=== PATIENT | female | born 1935 | race Caucasian/White ===

== ENCOUNTER 2017-01-18 12:59 | Emergency (ER) | payer MEDICARE ==
[2017-01-18] MEDS ORDERED: Ondansetron INJ* 2 MG/ML VIAL IV ONE (14:44)
[2017-01-18] MEDS ORDERED: Morphine INJ* 4 MG/ML 1 ML SYRINGE IV ONE (14:44)
[2017-01-18] MEDS ORDERED: NS 0.9% 1000 ML* 1,000 ML IV ONE (14:44)
[2017-01-18 15:11] LABS: Hematocrit 41 % (35-47); Hemoglobin 13.2 g/dl (12.0-16.0); Mean Corpuscular HGB Conc 33 g/dl (31-36); Mean Corpuscular Hemoglobin 28 pg (27-31); Mean Corpuscular Volume 85 fL (80-97); Mean Platelet Volume 7 um3 (7.4-10.4); Red Blood Count 4.81 10^6/ul (4.0-5.4); Red Cell Distribution Width 18 % (10.5-15); White Blood Count 7.4 10^3/ul (3.5-10.8)
[2017-01-18 15:26] LABS: Albumin 3.8 g/dL (3.2-5.2); BUN/Creatinine Ratio 18.3 (8-20); C Reactive Protein 16.52 mg/L (< 5.00); Calcium 9.4 mg/dL (8.6-10.3); EGFR African American 58.5 (>60); EGFR Non-African American 45.5 (>60); Globulin 3.6 g/dL (2-4); Magnesium 2.2 mg/dL (1.9-2.7); Total Bilirubin 0.5 mg/dL (0.2-1.0); Total Protein 7.4 g/dL (6.4-8.9)
[2017-01-18 15:54] LABS: Potassium 3.8 mmol/L (3.5-5.0)
[2017-01-18 16:17] LABS: Urine Bacteria Absent (Absent); Urine Bilirubin Negative (Negative); Urine Glucose Negative (Negative); Urine Nitrite Negative (Negative)
--- NOTE | 2017-01-18 16:21 | RAD ---
Indication: Left flank pain. CT of the abdomen and pelvis was performed without oral or IV contrast administration. Coronal and sagittal reconstructed images were obtained. Lung bases demonstrate no evidence of pleural fluid. Chronic interstitial disease is noted. Heart is of enlarged without evidence of pericardial effusion. Liver is normal in size. No focal lesions or intrahepatic ductal dilatation is noted. The patient status post cholecystectomy. The common duct is not dilated. The spleen is normal in size. No adrenal lesions are noted. The kidneys demonstrate no hydronephrosis in either kidney. Atherosclerotic aorta is noted. No dilated loops of bowel are noted. CT of the pelvis demonstrates no retroperitoneal or pelvic lymphadenopathy. The uterus and ovaries are unremarkable. The urinary bladder is unremarkable. No evidence of diverticulitis is noted. Extensive diverticulosis of the sigmoid colon is noted. No retroperitoneal hematoma is noted. No obstructive uropathy is noted. IMPRESSION: No evidence of abnormal masses or obstructive uropathy is noted. No retroperitoneal hematoma is noted. Diverticulosis without definite evidence of diverticulitis is noted.
--- NOTE | 2017-01-18 16:25 | RAD ---
Indication: Back pain. CT of the lumbar spine was obtained in the axial plane. Sagittal and coronal reconstructed images were obtained. Diffuse osteopenia is noted. There is grade 1 spondylolisthesis of L4 on 5. Postoperative changes with posterior fusion of L4 on 5 is noted. Retrolisthesis of L3 on 4 is noted. Facet arthropathy is noted. Degenerative disc disease is noted at L2-L3. Degenerative disc disease at L1-L2. Broad-based protrusion is noted. There may be a moderate degree of spinal stenosis is noted. Facet arthropathy is noted. At T12-L1 spondylitic ridge flattens the thecal sac. IMPRESSION: LAMINECTOMY AT L4-L5. GRADE 1 SPONDYLOLISTHESIS OF L4 ON 5 IS NOTED. FUSION RODS ARE NOTED WITH TRANSPEDICULAR SCREWS ON THE RIGHT AT L5, L4 AND L3. AT L1-L2 SPONDYLITIC RIDGE WITH MODERATE DEGREE OF SPINAL STENOSIS IS NOTED.
--- NOTE | 2017-01-18 16:51 | ED ---
Abram Quintana Rebecca, scribed for Ana Briones MD on 01/18/17 at 1421 . Back Pain - HPI Summary HPI Summary: Pt is a 81 y/o F who presents to ED c/o L lumbar back pain. Sx began suddenly at 0900 yesterday morning and is "above the hip." Sx aggravated and alleviated by nothing. Additionally c/o slight SOB and N/V, vomiting 1x this morning. Denies dysuria, urine frequency, fever, diarrhea, CP. States she was sitting in a chair, picking string beans 3 days ago. No recent falls. Is on Coumadin. PMHx chronic back pain - pain has never caused her to vomit previously. PSHx 2 back surgeries, placing hardware. - History of Current Complaint Chief Complaint: EDNauseaVomitDiarrh Stated Complaint: LT SIDED BACK PAIN,VOMITTING Time Seen by Provider: 01/18/17 14:19 Hx Obtained From: Patient Onset/Duration: Sudden Onset, Still Present Onset/Duration: Started Days Ago - Started yesterday, Still Present Back Pain Location: Is Discrete @ - L lumbar back Severity Currently: Severe Pain Intensity: 9 Pain Scale Used: 0-10 Numeric Aggravating Symptom(s): Nothing Alleviating Symptom(s): Nothing Associated Signs And Symptoms: Negative: Fever - Allergies/Home Medications Allergies/Adverse Reactions: Allergies Allergy/AdvReac Type Severity Reaction Status Date / Time Fluconazole [From Diflucan] Allergy Unknown Verified 01/20/16 10:43 Reaction Details zocor Allergy Unknown Uncoded 01/20/16 10:43 Reaction Details PMH/Surg Hx/FS Hx/Imm Hx Endocrine/Hematology History: Reports: Hx Blood Transfusions, Hx Diabetes, Hx Unexplained Bleeding - Admission Dx Cardiovascular History: Reports: Hx Angioplasty, Hx Atrial Fibrillation - 07/2015 , Hx Cardiac Arrest - 1991, Hx Congestive Heart Failure - 06/2015, Hx Coronary Artery Disease, Hx Embolism, Hx Hypercholesterolemia, Hx Hypertension, Hx Myocardial Infarction - 1991 Respiratory History: Reports: Hx Asthma, Hx Chronic Obstructive Pulmonary Disease (COPD) - likely, Hx Pneumonia, Hx Pulmonary Edema, Hx Pulmonary Embolism , Hx Sleep Apnea GI History: Reports: Hx Gall Bladder Disease - cholecystectomy, Hx Gastroesophageal Reflux Disease, Hx Gastrointestinal Bleed - Admission Dx, Other GI Disorders - umbilical hernia History: Reports: Hx Acute Renal Failure - Admission Dx, Other Problems/ Disorders - chronic kidney disease Denies: Hx Kidney Stones Musculoskeletal History: Reports: Hx Arthritis - osteoarthritis of spine, Hx Back Problems - lower back pain, Hx Gout, Hx Orthopedic Injury - broken leg,, Other Musculoskeletal History - spinal stenosis, carpal tunnel Sensory History: Reports: Hx Cataracts, Hx Contacts or Glasses, Hx Deafness - right Denies: Hx Hearing Aid Opthamlomology History: Reports: Hx Cataracts, Hx Contacts or Glasses - Surgical History Surgery Procedure, Year, and Place: gallbladder removal, appendix, left knee, back surgery, cardiac stents 1996, hardware in right knee, hardware in back from 2 back surgeries, carpal tunnel surgery to left wrist. 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 Negative: Diarrhea Negative: dysuria, frequency Positive: Arthralgia - L lumbar back pain All Other Systems Reviewed And Are Negative: Yes Physical Exam - Summary Physical Exam Summary: General: Well appearing, no pain distress Skin: Warm, Skin Color Reflects Adequate Perfusion, Dry Eyes: EOMI, ANNELIESE ENT: Pharynx normal, TMs normal Neck: Supple, nontender Respiratory: CTA, breath sounds present, no rhonchi, no wheezes, no rales Cardiovascular: RRR, no murmur, no rub, no gallop Abdomen: Soft, nontender, Non-distended, no guarding, no rebound Bowel: Present Musculoskeletal: ZACHARIAH, No edema, mild L4-L5 pain, mild L flank pain and mild costovertebral pain Neuro: Sensory/motor intact, A&Ox3, CN intact 2-12 Psych: Affect/mood appropriate Triage Information Reviewed: Yes Vital Signs On Initial Exam: Initial Vitals Temp Pulse Resp BP Pulse Ox 98.3 F 88 20 166/87 97 01/18/17 13:11 01/18/17 13:11 01/18/17 13:11 01/18/17 13:11 01/18/17 13:11 Vital Signs Reviewed: Yes Diagnostics - Vital Signs Vital Signs Temp Pulse Resp BP Pulse Ox 01/18/17 13:11 98.3 F 88 20 166/87 97 - Laboratory Lab Results: Lab Results 01/18/17 01/18/17 01/18/17 Range/Units 15:00 15:00 15:00 WBC 7.4 (3.5-10.8) 10^3/ul RBC 4.81 (4.0-5.4) 10^6/ul Hgb 13.2 (12.0-16.0) g/dl Hct 41 (35-47) % MCV 85 (80-97) fL MCH 28 (27-31) pg MCHC 33 (31-36) g/dl RDW 18 H (10.5-15) % Plt Count 277 (150-450) 10^3/ul MPV 7 L (7.4-10.4) um3 Neut % (Auto) 80.4 (38-83) % Lymph % (Auto) 9.9 L (25-47) % [place] % (Auto) 7.1 (1-9) % Eos % (Auto) 0.9 (0-6) % Baso % (Auto) 1.7 (0-2) % Absolute Neuts (auto) 5.9 (1.5-7.7) 10^3/ul Absolute Lymphs (auto) 0.7 L (1.0-4.8) 10^3/ul Absolute Monos (auto) 0.5 (0-0.8) 10^3/ul Absolute Eos (auto) 0.1 (0-0.6) 10^3/ul Absolute Basos (auto) 0.1 (0-0.2) 10^3/ul Absolute Nucleated RBC 0 10^3/ul Nucleated RBC % 0 INR (Anticoag Therapy) 2.45 H (0.89-1.11) Sodium 133 (133-145) mmol/L Potassium 3.8 (3.5-5.0) mmol/L Chloride 99 L (101-111) mmol/L Carbon Dioxide 26 (22-32) mmol/L Anion Gap 8 (2-11) mmol/L BUN 21 (6-24) mg/dL Creatinine 1.15 H (0.51-0.95) mg/dL Est GFR ( Amer) 58.5 (>60) Est GFR (Non-Af Amer) 45.5 (>60) BUN/Creatinine Ratio 18.3 (8-20) Glucose 132 H (70-100) mg/dL Lactic Acid (0.5-2.0) mmol/L Calcium 9.4 (8.6-10.3) mg/dL Magnesium 2.2 (1.9-2.7) mg/dL Total Bilirubin 0.50 (0.2-1.0) mg/dL AST 19 (13-39) U/L ALT 11 (7-52) U/L Alkaline Phosphatase 49 (34-104) U/L C-Reactive Protein 16.52 H (< 5.00) mg/L Total Protein 7.4 (6.4-8.9) g/dL Albumin 3.8 (3.2-5.2) g/dL Globulin 3.6 (2-4) g/dL Albumin/Globulin Ratio 1.1 (1-3) Lipase 17 (11.0-82.0) U/L Urine Color Urine Appearance Urine pH (5-9) Ur Specific [place] (1.010-1.030) Urine Protein (Negative) Urine Ketones (Negative) Urine Blood (Negative) Urine Nitrate (Negative) Urine Bilirubin (Negative) Urine Urobilinogen (Negative) Ur Leukocyte Esterase (Negative) Urine WBC (Auto) (Absent) Urine RBC (Auto) (Absent) Urine Bacteria (Absent) Urine Glucose (Negative) 01/18/17 01/18/17 Range/Units 15:00 15:15 WBC (3.5-10.8) 10^3/ul RBC (4.0-5.4) 10^6/ul Hgb (12.0-16.0) g/dl Hct (35-47) % MCV (80-97) fL MCH (27-31) pg MCHC (31-36) g/dl RDW (10.5-15) % Plt Count (150-450) 10^3/ul MPV (7.4-10.4) um3 Neut % (Auto) (38-83) % Lymph % (Auto) (25-47) % [place] % (Auto) (1-9) % Eos % (Auto) (0-6) % Baso % (Auto) (0-2) % Absolute Neuts (auto) (1.5-7.7) 10^3/ul Absolute Lymphs (auto) (1.0-4.8) 10^3/ul Absolute Monos (auto) (0-0.8) 10^3/ul Absolute Eos (auto) (0-0.6) 10^3/ul Absolute Basos (auto) (0-0.2) 10^3/ul Absolute Nucleated RBC 10^3/ul Nucleated RBC % INR (Anticoag Therapy) (0.89-1.11) Sodium (133-145) mmol/L Potassium (3.5-5.0) mmol/L Chloride (101-111) mmol/L Carbon Dioxide (22-32) mmol/L Anion Gap (2-11) mmol/L BUN (6-24) mg/dL Creatinine (0.51-0.95) mg/dL Est GFR ( Amer) (>60) Est GFR (Non-Af Amer) (>60) BUN/Creatinine Ratio (8-20) Glucose (70-100) mg/dL Lactic Acid 1.6 (0.5-2.0) mmol/L Calcium (8.6-10.3) mg/dL Magnesium (1.9-2.7) mg/dL Total Bilirubin (0.2-1.0) mg/dL AST (13-39) U/L ALT (7-52) U/L Alkaline Phosphatase (34-104) U/L C-Reactive Protein (< 5.00) mg/L Total Protein (6.4-8.9) g/dL Albumin (3.2-5.2) g/dL Globulin (2-4) g/dL Albumin/Globulin Ratio (1-3) Lipase (11.0-82.0) U/L Urine Color Straw Urine Appearance Clear Urine pH 7.0 (5-9) Ur Specific [place] 1.004 L (1.010-1.030) Urine Protein Negative (Negative) Urine Ketones Negative (Negative) Urine Blood Negative (Negative) Urine Nitrate Negative (Negative) Urine Bilirubin Negative (Negative) Urine Urobilinogen Negative (Negative) Ur Leukocyte Esterase Trace H (Negative) Urine WBC (Auto) Trace(0-5/hpf) (Absent) Urine RBC (Auto) Absent (Absent) Urine Bacteria Absent (Absent) Urine Glucose Negative (Negative) Result Diagrams: 01/18/17 15:00 01/18/17 15:00 Lab Statement: Any lab studies that have been ordered have been reviewed, and results considered in the medical decision making process. - CT L-Spine CT CT Interpretation: Positive (See Comments) - LAMINECTOMY AT L4-L5. GRADE 1 SPONDYLOLISTHESIS OF L4 ON 5 IS NOTED. FUSION RODS ARE NOTED WITH TRANSPEDICULAR SCREWS ON THE RIGHT AT L5, L4 AND L3. AT L1-L2 SPONDYLITIC RIDGE WITH MODERATE DEGREE OF SPINAL STENOSIS IS NOTED. CT Interpretation Completed By: Radiologist Abd/Pel CT CT Interpretation: Positive (See Comments) - No evidence of abnormal masses or obstructive uropathy is noted. No retroperitoneal hematoma is noted. Diverticulosis without definite evidence of diverticulitis is noted. CT Interpretation Completed By: Radiologist - EKG 1447 Cardiac Rate: NL - 86 bpm EKG Rhythm: Atrial Fibrillation ST Segment: Non-Specific - Non-specific ST changes EKG Comparison: No Significant Change - Unchanged from EKG on 01/20/2016 Re-Evaluation - Re-Evaluation First Eval Re-Evaluation Time: 16:43 Comment: Discussed CT and lab results with the pt. Back Pain Course/Dx - Course Course Of Treatment: 81 yo female with back pain uropathy and fx ruled out pt better after getting morphine Assessment/Plan: Elevated BP noted and advised to f/u with PCP. - Diagnoses Provider Diagnoses: Back pain Discharge - Discharge Plan Condition: Stable Disposition: HOME Prescriptions: Cyclobenzaprine TAB* [Flexeril 10 MG TAB*] 10 mg PO TID PRN #30 tab PRN Reason: Spasms HYDROcodone/ACETAMIN 5-325 MG* [Harrod 5-325 TAB*] 1 tab PO Q8H PRN #14 tab MDD 3 PRN Reason: Pain Patient Education Materials: Back Pain (ED) Referrals: Christie Gibbs MD [Primary Care Provider] - 3 Days The documentation as recorded by the Abram ruiz Rebecca accurately reflects the service I personally performed and the decisions made by me, Ana Briones MD.
[2017-01-18] MEDS ORDERED: HYDROcodone/ACETAMIN 5-325 MG* 1 TAB PO ONE (17:21)
[2017-01-18 17:26] VITALS: BP 116/79
== END 2017-01-18 17:26 | disposition home or self-care (01) ==
LOC: ED 12:59
DX: M54.5 Low back pain (principal); R06.02 Shortness of breath; R11.2 Nausea with vomiting, unspecified; I48.91 Unspecified atrial fibrillation; Z79.01 Long term (current) use of anticoagulants; E11.9 Type 2 diabetes mellitus without complications; I11.0 Hypertensive heart disease with heart failure; I50.9 Heart failure, unspecified; I25.2 Old myocardial infarction; I25.10 Atherosclerotic heart disease of native coronary artery without angina pectoris; Z86.711 Personal history of pulmonary embolism; J44.9 Chronic obstructive pulmonary disease, unspecified; K21.9 Gastro-esophageal reflux disease without esophagitis; Z87.891 Personal history of nicotine dependence; Z79.899 Other long term (current) drug therapy
CPT/HCPCS: 36415; 72131; 74176; 80053; 81003; 81015; 83605; 83690; 83735; 85025; 85610; 86140; 87086; 93005; 96374; 96375; 99283; J2270; J2405

== ENCOUNTER 2018-05-08 17:17 | Inpatient (IN) | payer MEDICARE ==
--- NOTE | 2018-05-08 18:05 | ED ---
HPI Chest Pain - HPI Summary HPI Summary: Patient is a 82 y/o F w/ c/o chest pressure, productive cough, hemoptysis, SOB. She states that chest pressure onset this morning at around 0830, she characterizes this chest pressure as a "heaviness". Patient states she coughed up blood at 1430 today, notes that there was a dark red streak of blood in her phlegm. Two episodes of this are reported. PMHx of COPD, patient is on o2 2L at home. She states that she is more SOB than usual. Hx of ID reported, patient is unsure about Hx of clots in legs/lungs. Patient denies pain in legs. She states she does not have nebulizer at home, but used inhaler GREETER. Patient notes that she has never coughed up blood before. She was treated for bronchitis at [place] [facility] on 04/17/18 with Z-pack and prednisone. Patient is on Coumadin. She was brought to ED by private car. FMHx of ID is denied, patient reports FMHx of CA but denies PMHx of CA. On triage, pain is rated 2/10, nothing is noted to aggravate/alleviate Sx. Home medications and allergies are reviewed. Home Medications Cyanocobalamin TAB* [Vitamin B12 TAB*] 1,000 mcg PO DAILY 05/08/18 [History Confirmed 05/08/18] Ezetimibe 10 mg PO DAILY 05/08/18 [History Confirmed 05/08/18] Multivitamin [Multivitamins] 1 cap PO DAILY 05/08/18 [History Confirmed 05/08/18 ] Potassium Chlor TAB* [Klor Con ER TAB*] 10 meq PO DAILY 05/08/18 [History Confirmed 05/08/18] Umeclidinium 62.5 MDI(NF) [Incruse ELLIPTA MDI (NF)] 62.5 mcg IN DAILY 05/08/18 [History Confirmed 05/08/18] Warfarin TAB(*) [Coumadin TAB(*)] 4 mg PO DAILY 05/08/18 [History Confirmed ] Allergies Allergy/AdvReac Type Severity Reaction Status Date / Time fluconazole Allergy Unknown Verified 05/08/18 18:41 Reaction Details zocor Allergy Unknown Uncoded 05/08/18 18:41 Reaction Details - History of Current Complaint Chief Complaint: EDGeneral Time Seen by Provider: 05/08/18 17:47 Hx Obtained From: Patient Onset/Duration: Started Hours Ago - She states that chest pressure onset this morning at around 0830, patient states she coughed up blood at 1430 today, Still Present Timing: Constant, Lasting Hours - She states that chest pressure onset this morning at around 0830, patient states she coughed up blood at 1430 today Initial Severity: Mild Current Severity: Mild - 2/10 Pain Intensity: 2 Pain Scale Used: 0-10 Numeric - 2/10 Chest Pain Location: Left Anterior Chest Pain Radiates: No Character: Heaviness, Pressure/Squeezing Aggravating Factor(s): Nothing Alleviating Factor(s): Nothing Associated Signs and Symptoms: Positive: Chest Pain - pressure/heaviness, Shortness of Breath, Cough, Productive Cough, Hemoptysis, Other: - NEGATIVE - LEG PAIN - Additional Pertinent History Primary Care Physician: XANDER - Allergy/Home Medications Allergies/Adverse Reactions: Allergies Allergy/AdvReac Type Severity Reaction Status Date / Time fluconazole Allergy Unknown Verified 05/08/18 18:41 Reaction Details simvastatin Allergy Unknown Verified 05/11/18 08:38 Reaction Details Home Medications: Home Medications Cyanocobalamin TAB* [Vitamin B12 TAB*] 1,000 mcg PO DAILY 05/08/18 [History Confirmed 05/08/18] Ezetimibe 10 mg PO DAILY 05/08/18 [History Confirmed 05/08/18] Multivitamin [Multivitamins] 1 cap PO DAILY 05/08/18 [History Confirmed 05/08/18 ] Potassium Chlor TAB* [Klor Con ER TAB 10 MEQ*] 10 meq PO DAILY 05/08/18 [ History Confirmed 05/08/18] Umeclidinium 62.5 MDI(NF) [Incruse ELLIPTA MDI (NF)] 62.5 mcg IN DAILY 05/08/18 [History Confirmed 05/08/18] Warfarin TAB(*) [Coumadin TAB(*)] 4 mg PO DAILY 05/08/18 [History Confirmed 06/26] Warfarin TAB(*) [Coumadin TAB(*)] 2 mg WEEKLY 05/09/18 [History Confirmed ] PMH/Surg Hx/FS Hx/Imm Hx Previously Healthy: No Endocrine/Hematology History: Reports: Hx Blood Transfusions, Hx Diabetes, Hx Unexplained Bleeding Cardiovascular History: Reports: Hx Angioplasty, Hx Atrial Fibrillation - 07/2015 , Hx Cardiac Arrest - 1991, Hx Congestive Heart Failure - 06/2015, Hx Coronary Artery Disease, Hx Embolism, Hx Hypercholesterolemia, Hx Hypertension, Hx Myocardial Infarction - 1991 Respiratory History: Reports: Hx Asthma, Hx Chronic Obstructive Pulmonary Disease (COPD), Hx Pneumonia, Hx Pulmonary Edema, Hx Pulmonary Embolism, Hx Sleep Apnea GI History: Reports: Hx Gall Bladder Disease - cholecystectomy, Hx Gastroesophageal Reflux Disease, Hx Gastrointestinal Bleed, Other GI Disorders - umbilical hernia History: Reports: Hx Acute Renal Failure, Hx Renal Disease - CKD Denies: Hx Kidney Stones Musculoskeletal History: Reports: Hx Arthritis - osteoarthritis of spine, Hx Back Problems - lower back pain, Hx Gout, Hx Orthopedic Injury - broken leg,, Other Musculoskeletal History - spinal stenosis, carpal tunnel Sensory History: Reports: Hx Cataracts, Hx Contacts or Glasses, Hx Deafness - right Denies: Hx Hearing Aid Opthamlomology History: Reports: Hx Cataracts, Hx Contacts or Glasses - Surgical History Surgery Procedure, Year, and Place: gallbladder removal, appendix, left knee, back surgery, cardiac stents 1996, hardware in right knee, hardware in back from 2 back surgeries, carpal tunnel surgery to left wrist. Hx Anesthesia Reactions: No Infectious Disease History: No Infectious Disease History: Denies: Traveled Outside the [place] in Last 30 Days - Family History Known Family History: Positive: Other - pacemaker (mother); sister with cancer; FMHx of ID denied - Social History Alcohol Use: None Hx Substance Use: No Substance Use Type: Reports: None Hx Tobacco Use: Yes Smoking Status (MU): Former Smoker Type: Cigarettes Amount Used/How Often: 1PPD Length of Time of Smoking/Using Tobacco: 35 Have You Smoked in the Last Year: No Review of Systems Constitutional: Negative Positive: Chest Pain Positive: Shortness Of Breath, Cough - hemoptysis Gastrointestinal: Negative Positive: no symptoms reported Positive: Other - NEGATIVE - LEG PAIN Skin: Negative Neurological: Negative Psychological: Normal All Other Systems Reviewed And Are Negative: Yes Physical Exam - Summary Physical Exam Summary: Appearance: Well-appearing, moderate pain distress, well-nourished; SOB at rest , but can speak in complete sentences Skin: Warm, color reflects adequate perfusion, dry Head: Normal Head/Face inspection, atraumatic Eyes: Conjunctiva clear ENT: Normal inspection Neck: Supple, no nodes, no JVD Respiratory: Minimal respiratory distress, decreased breath sounds throughout. Cardio: RRR, No murmur, pulses normal, brisk capillary refill Abdomen: Soft, nontender Bowel sounds: Present Musculoskeletal: Strength Intact/ROM intact, no calf tenderness, no edema. Psychological: Normal Neuro: Alert, muscle tone normal, no focal deficit Triage Information Reviewed: Yes Vital Signs On Initial Exam: Initial Vitals Temp Pulse Resp BP Pulse Ox 98.5 F 83 20 143/87 92 05/08/18 17:26 05/08/18 17:26 05/08/18 17:26 05/08/18 17:26 05/08/18 17:26 Vital Signs Reviewed: Yes Diagnostics - Vital Signs Vital Signs Temp Pulse Resp BP Pulse Ox 05/08/18 17:26 98.5 F 83 20 143/87 92 - Laboratory Result Diagrams: 05/09/18 05:02 05/09/18 05:02 Lab Statement: Any lab studies that have been ordered have been reviewed, and results considered in the medical decision making process. - Radiology CXR Radiology Interpretation Completed By: ED Physician Summary of Radiographic Findings: NAD - EKG 1753 Cardiac Rate: Other Rate - 100% paced rhythm with rate of 81 BPM Ectopy: None Summary of EKG Findings: EKG showed 100% paced rhythm with rate of 81 BPM. Re-Evaluation - Re-Evaluation First Eval Re-Evaluation Time: 20:06 Change: Unchanged Comment: Patient has had no hemoptysis while in the ED. Her 2 daughters and are with her. Patient continues to have chest pressure. Heart rate is still 100% paced. O2 sat is 95% on 2 L nasal cannula, her usual. Patient's blood pressure is 165 systolic. We will give ASA 324 mg by mouth and nitroglycerin 0.4 mg sublingual now for the continued chest pressure. Will consult the hospitalist regarding admission. Second Eval Re-Evaluation Time: 20:45 Change: Unchanged Comment: Patient ambulated to bathroom wearing her oxygen. She states her chest pressure is "a little worse". Dr. Rebolledo agrees to admit. Patient and family agree with admission. Chest Pain Course/Dx - Course Course Of Treatment: Patient is a 82 y/o F w/ c/o chest pressure, productive cough, hemoptysis, SOB. She states that chest pressure onset this morning at around 0830, she characterizes this chest pressure as a "heaviness". Patient states she coughed up blood at 1430 today, notes that there was a dark red streak of blood in her phlegm. Two episodes of this are reported. PMHx of COPD, patient is on o2 at home. She states that she is more SOB than usual. Hx of ID reported, patient is unsure about Hx of clots in legs/lungs. Patient denies pain in legs. She states she does not have nebulizer at home, but used inhaler GREETER. Patient notes that she has never coughed up blood before. She was treated for bronchitis at [facility] on 04/17/18 with Z-pack and prednisone. Patient is on Coumadin. She was brought to ED by private car. FMHx of ID is denied, patient reports FMHx of CA but denies PMHx of CA. Physical exam showed SOB at rest, but patient can speak in complete sentences. Moderate pain distress is noted. Minimal respiratory distress, decreased breath sounds throughout. Labs showed procalcitonin <0.1, BNP 185. First trop was 0.01, second was 0.01. CK-MB was 1.8, lactic acid 1.4, magnesium 2.0, glucose 93, creatinine 1.37, D-dimer < 200, MPV 7, APTT 40.3, INR 2.16. EKG showed 100% paced rhythm with rate of 81 BPM, CXR showed NAD. 2006 While in ED, no hemoptysis. However, patient continues to have chest pressure. ASA 324 PO ED ONCE ONE and nitroglycerin 0.5 mg SL ED ONCE ONE given. Patient's case was discussed with Dr. Rebolledo at 2038, Dr. Rebolledo accepts patient for admission. 2044 Patient states chest pressure is a little worse. Patient agreeable with admission. - Diagnoses Provider Diagnoses: Chest pain, Hemoptysis - Provider Notifications Discussed Care Of Patient With: Aleida Rebolledo Time Discussed With Above Provider: 20:39 Instructed by Provider To: Other - Patient's case was discussed with Dr. Rebolledo at 2038, Dr. Rebolledo accepts patient for admission. Discharge - Sign-Out/Discharge Documenting (check all that apply): Patient Departure - admit - Discharge Plan Condition: Stable Disposition: ADMITTED TO [facility] - Billing Disposition and Condition Condition: STABLE Disposition: Admitted to [facility] - Attestation Statements Document Initiated by Marilynn: Yes Documenting Scribe: SUMAN SHEPPARD Provider For Whom Marilynn is Documenting (Include Credential): BOGDAN ROWE MD Scribjoseluis Attestation: SUMAN Quintana , scribed for BOGDAN ROWE MD on 05/11/18 at 2147. Scribe Documentation Reviewed: Yes Provider Attestation: The documentation as recorded by the SUMAN ruiz accurately reflects the service I personally performed and the decisions made by me, BOGDAN ROWE MD Status of Scribe Document: Viewed
[2018-05-08 18:10] LABS: ABS Basophils 0.1 10^3/ul (0-0.2); ABS Eosinophils 0.1 10^3/ul (0-0.6); ABS Lymphocytes 1.4 10^3/ul (1.0-4.8); ABS Monocytes 0.6 10^3/ul (0-0.8); ABS Neutrophils 4.6 10^3/ul (1.5-7.7); ABS Nucleated RBC 0 10^3/ul; Eosinophil % 1.2 %; Hematocrit 40 % (35-47); Hemoglobin 13.3 g/dl (12.0-16.0); Lymphocyte % 20.4 %; Mean Corpuscular HGB Conc 33 g/dl (31-36); Mean Corpuscular Hemoglobin 28 pg (27-31); Mean Corpuscular Volume 86 fL (80-97); Nucleated Red Blood Cells % 0.1; Platelet Count 306 10^3/ul (150-450); Red Cell Distribution Width 15 % (10.5-15); White Blood Count 6.9 10^3/ul (3.5-10.8)
[2018-05-08 18:20] LABS: INR 2.16 (0.77-1.02)
[2018-05-08 18:34] LABS: EGFR Non-African American 37.1 (>60)
[2018-05-08] MEDS ORDERED: Aspirin 81 mg CHEW TAB* 81 MG TAB.CHEW PO ONE (20:22)
[2018-05-08] MEDS ORDERED: Nitroglycerin TAB 0.4 MG* 0.4 MG TAB SL ONE (20:23)
[2018-05-08] MEDS ORDERED: Albuterol 2.5 MG/3 ML NEB.SOL* (0.083%) INH PRN (21:49)
[2018-05-08] MEDS ORDERED: Al Hydrox/Mg Hydrox/Simet LIQ* 30 ML UDC PO PRN (21:49)
[2018-05-08] MEDS ORDERED: Acetaminophen TAB* 325 MG PO PRN (21:49)
[2018-05-08] MEDS ORDERED: Warfarin TAB(*) 4 MG PO ONE (22:15)
[2018-05-08] MEDS ORDERED: Warfarin TAB(*) 4 MG PO SCH (23:00)
[2018-05-08] MEDS ORDERED: methylPREDNISolone SOD 40 MG* 1 ML VIAL IV SCH (23:00)
[2018-05-09] MEDS: Azithromycin TAB* 250 MG PO SCH ×2 (00:09→21:59)
[2018-05-09] MEDS: Gabapentin CAP(*) 300 MG PO SCH ×2 (00:10→22:00)
[2018-05-09] MEDS: cloNIDine TAB* 0.1 MG PO SCH ×3 (00:10→22:00)
[2018-05-09] MEDS: Pramipexole TAB* 0.125 MG PO SCH ×2 (00:11→21:59)
[2018-05-09] MEDS: methylPREDNISolone SOD 40 MG* 1 ML VIAL IV SCH ×3 (00:12→21:59)
[2018-05-09] MEDS: Atorvastatin* 20 MG TAB PO SCH ×2 (00:34→21:59)
[2018-05-09 05:30] LABS: ABS Basophils 0 10^3/ul (0-0.2); ABS Eosinophils 0 10^3/ul (0-0.6); ABS Lymphocytes 0.6 10^3/ul (1.0-4.8); ABS Monocytes 0.1 10^3/ul (0-0.8); ABS Neutrophils 6.7 10^3/ul (1.5-7.7); ABS Nucleated RBC 0 10^3/ul; Eosinophil % 0.1 %; Hematocrit 40 % (35-47); Hemoglobin 13.2 g/dl (12.0-16.0); Lymphocyte % 7.9 %; Mean Corpuscular HGB Conc 33 g/dl (31-36); Mean Corpuscular Hemoglobin 28 pg (27-31); Mean Corpuscular Volume 87 fL (80-97); Mean Platelet Volume 7.6 fL (7.4-10.4); Nucleated Red Blood Cells % 0; Platelet Count 283 10^3/ul (150-450); Red Blood Count 4.64 10^6/ul (4.00-5.40); Red Cell Distribution Width 15 % (10.5-15); White Blood Count 7.4 10^3/ul (3.5-10.8)
[2018-05-09 05:36] LABS: INR 2.18 (0.77-1.02)
[2018-05-09 05:46] LABS: EGFR Non-African American 37.1 (>60)
--- NOTE | 2018-05-09 07:49 | HP ---
HISTORY AND PHYSICAL: DATE OF ADMISSION: 05/08/18 PROVIDER: Chika Wayne NP PRIMARY CARE PROVIDER: Sai ATTENDING PHYSICIAN WHILE IN THE HOSPITAL: Dr. Aleida Rebolledo * (dictated by Chika Wayne NP). CHIEF COMPLAINT: 1. Hemoptysis. 2. Chest pain. 3. Shortness of breath. HISTORY OF PRESENT ILLNESS: Ms. Apodaca is an 82-year-old female with past medical history significant for atrial fibrillation, congestive heart failure, cardiomyopathy, hyponatremia, diabetes, coronary artery disease, chronic kidney disease, and spinal stenosis, who presented to the emergency room for evaluation after having blood-streaked sputum this afternoon. The patient was concerned because she takes Coumadin at home for atrial fibrillation and was coughing up blood. So, she presented for further evaluation. The patient also reports that she has been having heaviness in her chest that started this morning, as well as some increased shortness of breath, again that also started this morning. She reports that she was recently placed on antiinflammatory in the beginning of April. She was placed on a course of prednisone that has since been completed. She denies any fever or chills. She does report chest heaviness. No edema. Does report cough and hemoptysis and increased shortness of breath. Denies coughing large amount of blood only streaking. She denies any nausea, vomiting, or diarrhea. Denies any abdominal pain. Denies any gross hematuria or dysuria. Denies any focal weakness or sensory loss. No visual complaints. No dysphagia. No arthralgias or myalgias, rashes or lesions. Denies any psychosis or anxiety. PAST MEDICAL HISTORY: Significant for: 1. Atrial fibrillation. 2. Congestive heart failure. 3. Cardiomyopathy. 4. Hyponatremia. 5. Diabetes. 6. Coronary artery disease. 7. Chronic kidney disease. 8. Spinal stenosis. 9. Obstructive sleep apnea. 10. GERD. PAST SURGICAL HISTORY: Significant for: 1. Back surgery. 2. Fracture to the left lower leg. 3. Cholecystectomy. 4. Appendectomy. 5. Carpal tunnel surgery. 6. Tubal ligation. HOME MEDICATIONS: 1. Vitamin B12 1000 mcg p.o. daily. 2. Multivitamin 1 cap p.o. daily. 3. Vitamin D3 2000 units p.o. daily. 4. Calcium carbonate 1 tab p.o. daily. 5. Benadryl 50 mg p.o. daily. 6. Warfarin 4 mg p.o. daily with 2 mg on Friday. 7. Pravastatin 80 mg p.o. at bedtime. 8. Mirapex 0.25 mg p.o. at bedtime. 9. Isosorbide 60 mg p.o. daily. 10. Gabapentin 300 mg p.o. at bedtime. 11. Fenofibrate 145 mg p.o. at bedtime. 12. Incruse Ellipta 62.5 mcg inhaled daily. 13. Clonidine 0.1 mg p.o. b.i.d. 14. Diltiazem 120 mg p.o. daily. 15. Allopurinol 100 mg p.o. b.i.d. 16. Torsemide 20 mg p.o. b.i.d. 17. Sertraline 100 mg p.o. daily. 18. Zetia 10 mg p.o. daily. 19. Potassium 10 mEq p.o. daily. ALLERGIES TO MEDICATIONS: FLUCONAZOLE and ZOCOR. FAMILY HISTORY: Mother with a history of congestive heart failure. No reported history of diabetes. Daughter and sister both reported history of breast cancer. SOCIAL HISTORY: The patient quit smoking in 1991. Prior to that, she smoked a pack a day for 20 years. Denies any alcohol or illicit drug use. She is . She lives with her . Surrogate decision maker is her . She is a full code. REVIEW OF SYSTEMS: There was no documented fever. No significant weight change. There was no double vision. No ear discharge. No rhinorrhea. No sore throat. She does report chest pain. She denies any orthopnea or nocturnal dyspnea. She does report some increased shortness of breath and coughing up blood streaked sputum. She denies any nausea, vomiting, or diarrhea. Denies any abdominal pain. Denies any gross hematuria or dysuria. Denies any focal weakness or sensory loss. Denies any changes in her vision. Denies any dysphagia. Denies any arthralgias or myalgias. Denies any rashes or lesions, psychosis or anxiety. PHYSICAL EXAMINATION GENERAL: At this time, Ms. Apodaca is an 82-year-old female. She is awake and alert, sitting on the stretcher in the emergency room. She appears to have mild respiratory distress. VITAL SIGNS: Blood pressure 144/69, heart rate is 76 and paced, O2 saturation is 95%, respirations are 21, temperature is 98.5. HEENT: Head is atraumatic, normocephalic. Eyes: EOMs are intact. Sclerae anicteric and not pale. Oral mucosa appeared to be moist. NECK: Supple. LUNGS: Diminished with expiratory wheezes bilaterally. There are no rales. There are fine crackles in the bases. CARDIAC: S1, S2. Regular rate. No rubs or gallops. ABDOMEN: Soft and nontender. Bowel sounds are present x4. EXTREMITIES: Pedal pulses are +2 bilaterally. There is no edema. She is able to move all 4 extremities with 5/5 strength. NEUROLOGIC: She is awake, alert, and oriented x3. Her speech is clear. Thought process is intact. There are no gross neuro deficits. SKIN: Intact. DIAGNOSTIC STUDIES/LAB DATA: WBCs are 6.9, RBCs 4.70, hemoglobin 13.3, hematocrit was 40, platelet count was 306. INR was 2.16, aPTT was 40.3, D- dimer was less than 200. Blood gas, ABG: pH was 7.47, PCO2 was 39, PO2 was 71 , HCO3 was 28.3, base excess was 4.5. Sodium 138, potassium 3.8, chloride 101, carbon dioxide was 29, anion gap was 8, BUN was 23, creatinine 1.37, lactic acid was 1.4, glucose was 93, calcium 9.9, magnesium 2.0. ASTs were 18, ALTs were 13. Troponin is 0.01 x2. BNP was 185 and procalcitonin was less than 0.1. Possible interstitial changes noted to the right lower lobe. Radiologist's reading is currently pending. She had an electrocardiogram that shows a paced rhythm and a rate of 81. ASSESSMENT AND PLAN: Ms. Apodaca is an 82-year-old female patient, who presented to emergency room today with complaints of hemoptysis, shortness of breath, and chest heaviness. We were asked to see and evaluate her due to her symptoms. She will be admitted under observation for: 1. Hemoptysis. The patient reports blood streaking to her sputum. She is currently on Coumadin. I suspect that this is related to esophageal irritation. We will continue to monitor her for further symptoms or worsening of her hemoptysis. Her INR is currently therapeutic at 2.14. We will continue with her Coumadin at this time. The patient being on Coumadin, the likelihood of pulmonary embolism is low on the differential, but we will continue to monitor her for hypoxia and if her symptoms become worse, we could consider a V/ Q scan or CTA of the chest. 2. Chest heaviness. The patient reports that she has had increased chest heaviness. Her troponins thus far are negative. We will continue trending her troponins for one more. I will repeat an EKG in the morning. I suspect the chest pain and heaviness is related to her shortness of breath and underlying lung disease. She did receive nitro x1 in the emergency room with no change in her chest heaviness. She did also receive aspirin 324 mg. 3. Shortness of breath. I suspect that this is related to possible chronic obstructive pulmonary disease exacerbation. I will give her Solu-Medrol 40 mg IV q.[address] hours[address] her on azithromycin 500 mg p.o. The patient is afebrile, but does have expiratory wheezes throughout bilaterally and some crackles in the bases. I will also continue her on her home torsemide, as she does have a history of congestive heart failure. 4. Congestive heart failure. We will continue on her torsemide, isosorbide. 5. Atrial fibrillation. The patient will continue on Coumadin 4 mg. She does take 2 mg on Saturdays and diltiazem 120 mg p.o. daily. 6. Chronic kidney disease. Her creatinine is at baseline. We will continue to monitor. 7. FEN. She will be placed on heart healthy, decaf okay diet. 8. Code status. She is a full code. 9. DVT prophylaxis. We will continue her home Coumadin. Her INR is therapeutic at this time. 10. Disposition. She will be placed under observation. TIME SPENT: Time spent on this admission was 60 minutes, greater than half that time was spent [id number] with the patient discussing the events leading to this admission, and obtaining my history and physical, the other half the time was spent going over my plan of care and implementing my plan of care. I have discussed this with my attending, Dr. Aleida Rebolledo; she is in agreement with my plan. CHIKA WAYNE, MANUFACTURING SUPERVISOR 2ND SHIFT [id number]/[facility] #: [id number] [facility]ARA HOSPITALVincent
[2018-05-09] MEDS: Diltiazem CD CAP* 120 MG PO SCH (09:21)
[2018-05-09] MEDS: Sertraline* 100 MG TAB PO SCH (09:21)
[2018-05-09] MEDS: Ezetimibe TAB* 10 MG PO SCH (09:22)
[2018-05-09] MEDS: Allopurinol TAB* 100 MG PO SCH ×2 (09:22→22:00)
[2018-05-09] MEDS: Cyanocobalamin TAB* 500 MCG PO SCH (09:23)
[2018-05-09] MEDS: Isosorbide Mononitrate ER TAB* 60 MG PO SCH (09:23)
[2018-05-09] MEDS: Potassium Chlor TAB* 10 MEQ TAB.ER PO SCH (09:25)
--- NOTE | 2018-05-09 16:33 | PN ---
Objective Active Medications: Acetaminophen (Tylenol Tab*) 650 mg PO Q4H PRN PRN Reason: FEVER/PAIN Al Hydrox/Mg Hydrox/Simethicone (Maalox Plus*) 30 ml PO Q6H PRN PRN Reason: INDIGESTION Albuterol (Ventolin 2.5 Mg/3 Ml Neb.Yoli*) 2.5 mg INH [id number] AWAKE PRN PRN Reason: sob/wheezing Allopurinol (Zyloprim Tab*) 100 mg PO BID [facility] Last Admin: 05/09/18 09:22 Dose: 100 mg Atorvastatin Calcium (Lipitor*) 20 mg PO BEDTIME [facility] Last Admin: 05/09/18 00:34 Dose: 20 mg Azithromycin (Zithromax Tab*) 500 mg PO 2100 [facility] Last Admin: 05/09/18 00:09 Dose: 500 mg Clonidine HCl (Catapres Tab*) 0.1 mg PO BID [facility] Last Admin: 05/09/18 09:22 Dose: 0.1 mg Cyanocobalamin (Vitamin B12 Tab*) 1,000 mcg PO DAILY [facility] Last Admin: 05/09/18 09:23 Dose: 1,000 mcg Diltiazem HCl (Cardizem Cd Cap*) 120 mg PO DAILY [facility] Last Admin: 05/09/18 09:21 Dose: 120 mg Diphenhydramine HCl (Benadryl Po*) 50 mg PO BEDTIME [facility] Ezetimibe (Zetia Tab*) 10 mg PO DAILY [facility] Last Admin: 05/09/18 09:22 Dose: 10 mg Fenofibrate (Tricor(Nf)) 145 mg PO BEDTIME [facility] Gabapentin (Neurontin Cap(*)) 300 mg PO BEDTIME [facility] Last Admin: 05/09/18 00:10 Dose: 300 mg Isosorbide Mononitrate (Imdur Er Tab*) 60 mg PO DAILY [facility] Last Admin: 05/09/18 09:23 Dose: 60 mg Methylprednisolone Sodium Succinate (Solu-Medrol 40 Mg) 40 mg IV Q12HR [facility] Last Admin: 05/09/18 09:20 Dose: 40 mg Potassium Chloride (Klor Con Er Tab*) 10 meq PO DAILY [facility] Last Admin: 05/09/18 09:25 Dose: 10 meq Pramipexole Dihydrochloride (Mirapex Tab*) 0.25 mg PO BEDTIME [facility] Last Admin: 05/09/18 00:11 Dose: 0.25 mg Sertraline HCl (Zoloft*) 100 mg PO DAILY [facility] Last Admin: 05/09/18 09:21 Dose: 100 mg Vital Signs - 8 hr 05/09/18 05/09/18 05/09/18 08:43 11:17 15:16 Temperature 97.5 F 97.7 F Pulse Rate 78 82 Respiratory 18 20 Rate Blood Pressure 138/65 137/67 (mmHg) O2 Sat by Pulse 96 98 97 Oximetry Oxygen Devices in Use Now: Nasal Cannula Result Diagrams: 05/09/18 05:02 05/09/18 05:02 Assess/Plan/Problems-Billing Assessment: This is an 82 year old female that presents with SOB, chest heaviness and hemoptysis, admitted for same. - Patient Problems (1) Hemoptysis Code(s): R04.2 - HEMOPTYSIS SNOMED Code(s): 24773962 Comment: - 2/2 coumadin use with cough and irritation - Stable (2) CAD (coronary artery disease) Code(s): I25.10 - ATHSCL HEART DISEASE OF [place] CORONARY ARTERY W/O ANG PCTRS SNOMED Code(s): 16153981 Comment: - With report of chest heaviness and cough at admission - Does report hx of PM insertion and afib on coumadin - Continue metoprolol, statin, and imdur - Troponins negative, no EKG changes - Chest pain may be a component of lung disease given recent steroids, however , last ECHO was in 2016, will repeat ECHO and assess LV function (3) CKD (chronic kidney disease) stage 4, GFR 15-29 ml/min Code(s): N18.4 - CHRONIC KIDNEY DISEASE, STAGE 4 (SEVERE) SNOMED Code(s): 600504695 Comment: - Creat at baseline (4) Cardiomyopathy Code(s): I42.9 - CARDIOMYOPATHY, UNSPECIFIED SNOMED Code(s): 78855623 Comment: - Last ECHo in 2016 showing EF of 40-45% - Continue home meds and supportive care (5) HTN (hypertension) Current Visit: No Status: Acute Code(s): I10 - ESSENTIAL (PRIMARY) HYPERTENSION SNOMED Code(s): 90096041 Comment: C/C trazosin, losartan. Continue clonidine, diltiazem, and metoprolol. (6) DVT prophylaxis Code(s): SXQ5231 - SNOMED Code(s): 288509183 Comment: - INR therapeutic (7) Full code status Current Visit: No Status: Acute Code(s): Z78.9 - OTHER SPECIFIED HEALTH STATUS SNOMED Code(s): 328369991 Status and Disposition: Inpatient, anticipate DC home when medically stable
[2018-05-09] MEDS: diPHENhydraMINE PO* 50 MG PO SCH (22:00)
[2018-05-09] MEDS: Fenofibrate(NF) 145 MG TAB PO SCH (22:06)
[2018-05-10] MEDS: Allopurinol TAB* 100 MG PO SCH ×2 (09:26→21:47)
[2018-05-10] MEDS: Ezetimibe TAB* 10 MG PO SCH (09:27)
[2018-05-10] MEDS: Potassium Chlor TAB* 10 MEQ TAB.ER PO SCH (09:27)
[2018-05-10] MEDS: Isosorbide Mononitrate ER TAB* 60 MG PO SCH (09:27)
[2018-05-10] MEDS: Cyanocobalamin TAB* 500 MCG PO SCH (09:27)
[2018-05-10] MEDS: methylPREDNISolone SOD 40 MG* 1 ML VIAL IV SCH ×2 (09:27→21:48)
[2018-05-10] MEDS: cloNIDine TAB* 0.1 MG PO SCH ×2 (09:27→21:47)
[2018-05-10] MEDS: Sertraline* 100 MG TAB PO SCH (09:27)
[2018-05-10] MEDS: Diltiazem CD CAP* 120 MG PO SCH (09:27)
--- NOTE | 2018-05-10 15:38 | ECHO ---
Patient: KEVIN DURAN [facility] Rec#: [id number] : 1935 Date: 05/10/2018 Age: 82y Height: 163 cm / 64.2 in Weight: 99.97 kg / 220.3 lbs Sex: F BSA: 2.04 Room#: 433 Admit Date#: 05/08/2018 Type: Inpatient Referring: Melony Caballero Reading: Marck Matamoros DO Yard Associate: Marine Cabrera RDCS Transthoracic Echocardiogram Indication: Chest pain BP: 137/62 HR: 80 Rhythm: Paced Findings History: A-fib, CHF, cardiomyopathy, DM, CAD, CKD, ABDOUL. Technical Comments: The study quality is fair. Completed at 1330. Left Ventricle: The left ventricular chamber size is normal. Mild concentric left ventricular hypertrophy is observed. There is normal left ventricular systolic function. The estimated ejection fraction is 55-60%. There is abnormal ventricular septal wall motion consistent with right ventricular pacemaker. Abnormal left ventricular diastolic function is observed. Left Atrium: The left atrium is mildly dilated. Right Ventricle: The right ventricular cavity size is normal. The right ventricular global systolic function is mildly reduced. A pacemaker wire is visualized in the right ventricle. Right Atrium: The right atrium is moderately dilated. A pacemaker wire is visualized in the right atrium. Aortic Valve: The aortic valve is trileaflet. The aortic valve leaflets are mildly thickened. There is a trace of aortic regurgitation. There is no evidence of aortic stenosis. Mitral Valve: Mild mitral annular calcification present. The mitral valve leaflets are mildly thickened. There is mild mitral regurgitation. There is no evidence of mitral stenosis. Tricuspid Valve: The tricuspid valve leaflets are normal. There is mild tricuspid regurgitation. No pulmonary hypertension is noted., TR velocity 2.7 m/s There is no tricuspid stenosis. Pulmonic Valve: The pulmonic valve appears normal. There is a trace pulmonic regurgitation. There is no pulmonic stenosis. Pericardium: There is no significant pericardial effusion. Aorta: There is no dilatation of the ascending aorta. The aortic arch is not well visualized. The aortic root is normal in size. Pulmonary Artery: The main pulmonary artery appears normal. Venous: The inferior vena cava is dilated. There is a greater than 50% respiratory change in the inferior vena cava dimension. Conclusions The left ventricular chamber size is normal. Mild concentric left ventricular hypertrophy is observed. There is normal left ventricular systolic function. The estimated ejection fraction is 55-60%. The left atrium is mildly dilated. The right ventricular cavity size is normal. The right ventricular global systolic function is mildly reduced. A pacemaker wire is visualized in the right ventricle and septal motion appears to be RV paced No more than mild valvular regurgitation noted Normal estimated PASP which may be underestimated Comapred to prior study from 11/2017, the LVEF was prevously mildly reduced and estimated PASP was 60 mmHg Measurements Name Value Normal Range RVIDd (AP) 2D 3.8 cm (0.9 - 2.6) RVDdMajor (2D) 4.9 cm (2.2 - 4.4) RVAW (2D) 0.9 cm (0.2 - 0.5) RAd ISD 4CH 5.8 cm (3.4 - 4.9) RA (A4C)W 4.7 cm (2.9 - 4.6) IVSd (2D) 1.1 cm (0.6 - 1) LVPWd (2D) 1.1 cm (0.6 - 1) LVIDd (2D) 4.8 cm (3.6 - 5.4) LVIDs (2D) 4.4 cm - LV FS (2D) 10 % (25 - 45) Aortic Annulus 1.9 cm (1.4 - 2.6) Ao root diameter (2D) 3.1 cm (2.1 - 3.5) Ascending Ao 3.3 cm (2.1 - 3.4) LA dimension (AP) 2D 4.8 cm (2.3 - 3.8) LAd ISD 4CH 6.3 cm (2.9 - 5.3) LA ISD 4CH W 4.5 cm (2.5 - 4.5) Name Value Normal Range LA ESV BP (A/L) index 37 ml/m2 - Name Value Normal Range MV E-wave Vmax 1.2 m/sec - MV deceleration time 190 msec - LV septal e' Vmax 0.07 m/sec - LV lateral e' Vmax 0.07 m/sec - LV E:e' septal ratio 17.14 ratio - LV E:e' lateral ratio 17.14 ratio - Name Value Normal Range AV Vmax 1 m/sec - AV VTI 22.4 cm - AV peak gradient 4 mmHg - AV mean gradient 2 mmHg - LVOT Vmax 1 m/sec - LVOT VTI 18.9 cm - LVOT peak gradient 4 mmHg - LVOT mean gradient 2 mmHg - AHMET Vmax 0.6 m/sec - Name Value Normal Range MR Vmax 5.2 m/sec - MR VTI 178 cm - MR flow (PISA) 24 ml/sec - MR ERO 0.05 cm2 - MR PISA radius 0.3 cm - MR alias Vmax 42.1 cm/sec - Name Value Normal Range TR Vmax 2.7 m/sec - TR peak gradient 29 mmHg - RAP 8 mmHg - RVSP 37 mmHg - IVC diameter 2.7 cm - Name Value Normal Range PV Vmax 1 m/sec - PV peak gradient 4 mmHg -
--- NOTE | 2018-05-10 16:02 | PN ---
Subjective Date of Service: 05/10/18 Interval History: Patient seen and examined. States she is feeling better today. Had one episode of chest heaviness during ECHO today, however, it resolved with change of position and increased O2. She is currently OOB to chair, visiting with family and feeling improved. No acute SOB, tolerating O2 at 2.5L, denies n/v, no hemoptysis, mild unproductive cough. No fever or chills. Objective Active Medications: Acetaminophen (Tylenol Tab*) 650 mg PO Q4H PRN PRN Reason: FEVER/PAIN Al Hydrox/Mg Hydrox/Simethicone (Maalox Plus*) 30 ml PO Q6H PRN PRN Reason: INDIGESTION Albuterol (Ventolin 2.5 Mg/3 Ml Neb.Yoli*) 2.5 mg INH [id number] AWAKE PRN PRN Reason: sob/wheezing Last Admin: 05/10/18 12:48 Dose: 2.5 mg Allopurinol (Zyloprim Tab*) 100 mg PO BID [facility] Last Admin: 05/10/18 09:26 Dose: 100 mg Atorvastatin Calcium (Lipitor*) 20 mg PO BEDTIME [facility] Last Admin: 05/09/18 21:59 Dose: 20 mg Azithromycin (Zithromax Tab*) 500 mg PO 2100 [facility] Last Admin: 05/09/18 21:59 Dose: 500 mg Clonidine HCl (Catapres Tab*) 0.1 mg PO BID [facility] Last Admin: 05/10/18 09:27 Dose: 0.1 mg Cyanocobalamin (Vitamin B12 Tab*) 1,000 mcg PO DAILY [facility] Last Admin: 05/10/18 09:27 Dose: 1,000 mcg Diltiazem HCl (Cardizem Cd Cap*) 120 mg PO DAILY [facility] Last Admin: 05/10/18 09:27 Dose: 120 mg Diphenhydramine HCl (Benadryl Po*) 50 mg PO BEDTIME [facility] Last Admin: 05/09/18 22:00 Dose: 50 mg Ezetimibe (Zetia Tab*) 10 mg PO DAILY [facility] Last Admin: 05/10/18 09:27 Dose: 10 mg Fenofibrate (Tricor(Nf)) 145 mg PO BEDTIME [facility] Last Admin: 05/09/18 22:06 Dose: Not Given Gabapentin (Neurontin Cap(*)) 300 mg PO BEDTIME [facility] Last Admin: 05/09/18 22:00 Dose: 300 mg Isosorbide Mononitrate (Imdur Er Tab*) 60 mg PO DAILY [facility] Last Admin: 05/10/18 09:27 Dose: 60 mg Methylprednisolone Sodium Succinate (Solu-Medrol 40 Mg) 40 mg IV Q12HR [facility] Last Admin: 05/10/18 09:27 Dose: 40 mg Potassium Chloride (Klor Con Er Tab*) 10 meq PO DAILY [facility] Last Admin: 05/10/18 09:27 Dose: 10 meq Pramipexole Dihydrochloride (Mirapex Tab*) 0.25 mg PO BEDTIME [facility] Last Admin: 05/09/18 21:59 Dose: 0.25 mg Sertraline HCl (Zoloft*) 100 mg PO DAILY [facility] Last Admin: 05/10/18 09:27 Dose: 100 mg Warfarin Sodium (Coumadin Tab(*)) 4 mg PO DAILY@1700 [facility]; Protocol Vital Signs - 8 hr 05/10/18 05/10/18 05/10/18 08:14 11:18 12:21 Temperature 97.4 F 97.8 F 97 F Pulse Rate 82 77 74 Respiratory 20 16 20 Rate Blood Pressure 142/73 137/62 129/55 (mmHg) O2 Sat by Pulse 98 99 93 Oximetry 05/10/18 12:49 Temperature Pulse Rate 77 Respiratory 20 Rate Blood Pressure (mmHg) O2 Sat by Pulse 96 Oximetry Oxygen Devices in Use Now: Nasal Cannula Appearance: alert, fatigued-looking, NAD Eyes: No Scleral Icterus, PERRLA Ears/Nose/Mouth/Throat: NL Teeth, Lips, Gums, Mucous Membranes Moist Neck: NL Appearance and Movements; NL JVP, Trachea Midline Respiratory: Symmetrical Chest Expansion and Respiratory Effort, - - diminished throughout lung fileds, no wheeze rales or rhonchi Cardiovascular: NL Sounds; No Murmurs; No JVD, No Edema, - - paced Abdominal: NL Sounds; No Tenderness; No Distention Extremities: No Edema, No Clubbing, Cyanosis Skin: No Rash or Ulcers Neurological: Alert and Oriented x 3, NL Sensation Nutrition: Taking PO's Result Diagrams: 05/09/18 05:02 05/09/18 05:02 Microbiology and Other Data: Microbiology 05/09/18 00:41 Urine Culture - Final Urine No Growth (<1,000 CFU/mL) Diagnostic Imaging: Cardiac ECHO Conclusions: The left ventricular chamber size is normal. Mild concentric left ventricular hypertrophy is observed. There is normal left ventricular systolic function. The estimated ejection fraction is 55-60%. The left atrium is mildly dilated. The right ventricular cavity size is normal. The right ventricular global systolic function is mildly reduced. A pacemaker wire is visualized in the right ventricle and septal motion appears to be RV paced No more than mild valvular regurgitation noted Assess/Plan/Problems-Billing Assessment: This is an 82 year old female that presents with SOB, chest heaviness and hemoptysis, admitted for same. - Patient Problems (1) Hemoptysis Code(s): R04.2 - HEMOPTYSIS SNOMED Code(s): 51550126 Comment: - 2/2 coumadin use with cough and irritation, likely COPD exacerbation - Stable, restart coumadin home dose tonight of 4mg - Change to oral prednisone tomorrow and taper - Continue azithromycin and restart Incruse Ellipta at DC (2) CAD (coronary artery disease) Code(s): I25.10 - ATHSCL HEART DISEASE OF [place] CORONARY ARTERY W/O ANG PCTRS SNOMED Code(s): 28938820 Comment: - With report of chest heaviness and cough at admission which appears to be related to her COPD rather than cardiac origin - Does report hx of PM insertion and afib on coumadin - Continue diltiazem, statin, and imdur - Troponins negative, no EKG changes - Echo as above, some improvement from 2016 - No s/s ACS (3) CKD (chronic kidney disease) stage 4, GFR 15-29 ml/min Code(s): N18.4 - CHRONIC KIDNEY DISEASE, STAGE 4 (SEVERE) SNOMED Code(s): 053424156 Comment: - Creat at baseline (4) Cardiomyopathy Code(s): I42.9 - CARDIOMYOPATHY, UNSPECIFIED SNOMED Code(s): 45542233 Comment: - Last ECHo in 2016 showing EF of 40-45%, new ECHO shows improved EF of 50-55% - Restart torsemide tomorrow, will confirm home dose (5) HTN (hypertension) Code(s): I10 - ESSENTIAL (PRIMARY) HYPERTENSION SNOMED Code(s): 51356506 Comment: - continue diltiazem and clonidine, stable (6) DVT prophylaxis Code(s): JXC9041 - SNOMED Code(s): 295851496 Comment: - INR therapeutic (7) Full code status Current Visit: No Status: Acute Code(s): Z78.9 - OTHER SPECIFIED HEALTH STATUS SNOMED Code(s): 426318738 Status and Disposition: Inpatient, progressing. Dispo to home most likely tomorrow.
[2018-05-10] MEDS: Warfarin TAB(*) 4 MG PO SCH (17:53)
[2018-05-10] MEDS: Fenofibrate(NF) 145 MG TAB PO SCH (21:40)
[2018-05-10] MEDS: Torsemide TAB* 20 MG PO SCH (21:43)
[2018-05-10] MEDS: diPHENhydraMINE PO* 50 MG PO SCH (21:44)
[2018-05-10] MEDS: Pramipexole TAB* 0.125 MG PO SCH (21:44)
[2018-05-10] MEDS: Gabapentin CAP(*) 300 MG PO SCH (21:45)
[2018-05-10] MEDS: Atorvastatin* 20 MG TAB PO SCH (21:46)
[2018-05-10] MEDS: Azithromycin TAB* 250 MG PO SCH (21:46)
[2018-05-11] MEDS: Cyanocobalamin TAB* 500 MCG PO SCH (10:19)
[2018-05-11] MEDS: methylPREDNISolone SOD 40 MG* 1 ML VIAL IV SCH (10:19)
[2018-05-11] MEDS: cloNIDine TAB* 0.1 MG PO SCH (10:19)
[2018-05-11] MEDS: Sertraline* 100 MG TAB PO SCH (10:19)
[2018-05-11] MEDS: Potassium Chlor TAB* 10 MEQ TAB.ER PO SCH (10:20)
[2018-05-11] MEDS: Torsemide TAB* 20 MG PO SCH (10:20)
[2018-05-11] MEDS: Ezetimibe TAB* 10 MG PO SCH (10:20)
[2018-05-11] MEDS: Diltiazem CD CAP* 120 MG PO SCH (10:20)
[2018-05-11] MEDS: Allopurinol TAB* 100 MG PO SCH (10:20)
[2018-05-11] MEDS: Isosorbide Mononitrate ER TAB* 60 MG PO SCH (10:20)
[2018-05-11 16:59] VITALS: BP 140/66
[2018-05-11] MEDS: Warfarin TAB(*) 4 MG PO SCH (17:21)
--- NOTE | 2018-05-12 13:33 | DS ---
CC: Dr. Gibbs * DISCHARGE SUMMARY: DATE OF ADMISSION: 05/08/18 DATE OF DISCHARGE: 05/11/18 PRIMARY CARE PROVIDER: Christie Gibbs MD ATTENDING PHYSICIAN: Aleida Rebolledo DO MY ATTENDING FOR TODAY: Perla Valera MD * (DICTATED BY YENIFER GOLDSMITH NP) HOSPITAL COURSE: This is a very pleasant 82-year-old female patient who presented with a complaint of shortness of breath and hemoptysis and some reproducible left- sided chest pain. The patient was concerned when she begun having coughing fits resulting in some sputum production that was streaked with blood. She came to the emergency department for evaluation. The patient reports that she had been having some heaviness and shortness of breath. She had been taking her Coumadin as prescribed. Denied any nausea, vomiting, or diarrhea and no further complaints. She does use oxygen at home; however, she had some hypoxia when she was initially admitted. Her past medical history is significant for AFib, CHF, cardiomyopathy, diabetes, coronary artery disease, chronic kidney disease, ABDOUL, and GERD. The patient did not present with a typical complaint what we would consider to be an acute coronary syndrome. However, given her history, we did trend troponins. Troponins were not elevated they were negative at 0.01 x3. She did have a repeat echocardiogram on . Her echo showed an EF of 55 to 60%, mild dilatation of the left atrium, right ventricular global systolic function was mildly reduced, pacemaker wire visualized in the ventricle and septal motion appears to be RV paced. Mild valvular regurgitation noted. Mild concentric left ventricular hypertrophy and compared to her study of November 2017, the LVEF was previously mildly reduced and her estimated PASP was 60. At this time, her estimated PASP is normal. The patient was placed on regimen for COPD exacerbation including steroid treatment , breathing treatments, and azithromycin. She progressed slowly. She was able to ambulate today without oxygen and maintain a saturation of 92%. Overall, the patient felt improved. Just of note, she did have another bout of what she called left-sided chest pain during her echocardiogram; however, when she changed positions and increased her oxygen, the pain subsided. As such, her pain and heaviness in her chest seem to ultimately be related to her lung disease as her cardiac status remained stable. The patient was ready for discharge on 05/11/18. DISCHARGE DIAGNOSES: 1. Shortness of breath with hemoptysis, now resolved. 2. History of coronary artery disease, stable. 3. Chronic kidney disease, stable. 4. History of cardiomyopathy at baseline. 5. History of hypertension, stable. 6. Chronic obstructive pulmonary disease with exacerbation, improving. DISCHARGE MEDICATIONS: Include: 1. Warfarin 2 mg daily alternating with 4 mg per home regimen. 2. Vitamin B12 1000 mcg daily. 3. Multivitamin 1 tablet daily. 4. Vitamin D3 2000 units daily. 5. Caltrate 1 tab p.o. daily. 6. Benadryl 50 mg at bedtime p.r.n. 7. Pravastatin sodium 80 mg at bedtime. 8. Mirapex 0.25 mg at bedtime. 9. Imdur 60 mg p.o. daily. 10. Gabapentin 300 mg at bedtime. 11. Fenofibrate 145 mg at bedtime. 12. Incruse Ellipta 62.5 mcg inhaled daily. 13. Clonidine 0.1 mg p.o. b.i.d. 14. Diltiazem 120 mg p.o. daily. 15. Allopurinol 100 mg p.o. b.i.d. 16. Zetia 10 mg p.o. daily. 17. K-Chlor 10 mEq daily. 18. Prednisone 50 mg daily with a taper of 10 mg every 3 days until complete. 19. Torsemide 20 mg p.o. 2 times a day. 20. Azithromycin 500 mg a day x5 days. REVIEW OF SYSTEMS: Ten point review of systems is negative except as noted in hospital course above. PHYSICAL EXAM: Today reveals a well-appearing, 82-year-old female. Blood pressure 140/66, heart rate 82, respiratory rate 20, O2 saturations 99% on 2 L, temperature 97.5. HEENT: The patient is atraumatic, normocephalic. PERRLA with nonicteric sclerae. Oral mucosa is moist. Tongue is midline. Neck is supple, nontender. No JVD noted. No carotid bruits auscultated. Cardiovascular: S1, S2 present. No murmurs, gallops, or rubs noted. She has a paced rhythm on telemetry. Rate and rhythm are regular. Lungs are diminished throughout. No appreciable wheezing, rhonchi, or rales noted. Abdomen is soft, nontender, nondistended. Positive bowel sounds in all 4 quadrants. : Deferred. Musculoskeletal: There is no clubbing, no cyanosis , and no edema. She has +2 distal pulses palpable and a steady gait. Neurologic : Grossly intact. Psychiatric: Cooperative and appropriate. LABORATORY DATA: Sodium 138, potassium 3.8, chloride 101, CO2 of 29, BUN 23, creatinine 1.37, GFR 37.1. Lactic acid 1.4. Troponins negative, 0.01 x3. Procalcitonin was negative at 0.1. BNP 185. LFTs within normal range. WBCs 7.4, RBCs 4.64, hemoglobin 13.2, hematocrit 40, platelets 283. INR is 2.18. Blood gas showed a pH of 7.47, CO2 of 39, initial pO2 was 71, bicarb of 28.3 with base excess of 4.5. IMAGING: Chest x-ray on 05/08/18 showed some findings consistent with COPD, but no evidence of acute consolidation. DISPOSITION: The patient will be discharged to home in the care of her and family. All questions were answered. The patient stated her understanding of her discharge plan and medications at discharge. FOLLOWUP: The patient was instructed to follow up with Dr. Gibbs in the next 4 to 7 days. She was placed on prednisone taper and azithromycin. She should have her lungs checked at her followup appointment to ensure resolution of her symptoms. She should remain on her O2, 2 L as needed per her home regimen. We recommended a low sodium diet, heart healthy and activity as tolerated. TIME SPENT: 35 minutes on discharge planning. YENIFER GOLDSMITH NP [id number]/[facility] #: [id number] [place]
== END 2018-05-11 18:00 | disposition home or self-care (01) | DRG 191 ==
LOC: ED 17:17 → MEDTELE 21:49 → OBSVTOIN 05-09 18:00
PROVIDERS: ADMIT Hospitalist; ATTEND Internal Medicine
DX: J44.1 Chronic obstructive pulmonary disease with (acute) exacerbation (principal); R04.2 Hemoptysis; I13.0 Hypertensive heart and chronic kidney disease with heart failure and stage 1 through stage 4 chronic kidney disease, or unspecified chronic kidney disease; I42.9 Cardiomyopathy, unspecified; E87.1 Hypo-osmolality and hyponatremia; N18.4 Chronic kidney disease, stage 4 (severe); Z99.81 Dependence on supplemental oxygen; I50.9 Heart failure, unspecified; I48.91 Unspecified atrial fibrillation; E11.22 Type 2 diabetes mellitus with diabetic chronic kidney disease; M48.00 Spinal stenosis, site unspecified; I25.10 Atherosclerotic heart disease of native coronary artery without angina pectoris; G47.33 Obstructive sleep apnea (adult) (pediatric); K21.9 Gastro-esophageal reflux disease without esophagitis; R09.02 Hypoxemia; Z79.01 Long term (current) use of anticoagulants; Z79.84 Long term (current) use of oral hypoglycemic drugs; Z79.899 Other long term (current) drug therapy; Z88.8 Allergy status to other drugs, medicaments and biological substances; Z87.891 Personal history of nicotine dependence
CPT/HCPCS: 36415; 71045; 80048; 80053; 82550; 82553; 82803; 83605; 83735; 83880; 84145; 84484; 85025; 85379; 85610; 85730; 87086; 93005; 93306; 94640; 96374; 99284; A9270-GY; J2920

== ENCOUNTER 2024-03-19 22:13 | Observation (INO) ==
[2024-03-19 22:39] LABS: ABS Basophils 0.1 10^3/uL (0.0-0.1); ABS Eosinophils 0.1 10^3/uL (0.0-0.5); ABS Lymphocytes 1.3 10^3/uL (1.0-4.8); ABS Neutrophils 4.6 10^3/uL (1.5-7.6); Eosinophil % 1.2 %; Hematocrit 47.8 % (35-45); Hemoglobin 15.7 g/dL (11.5-14.3); Lymphocyte % 18.4 %; Mean Corpuscular Hemoglobin 30.5 pg (27-33); Mean Corpuscular Hgb Conc 32.8 g/dL (31-36); Mean Platelet Volume 7.7 fL (7.5-11.2); Platelet Count 257 10^3/uL (150-450); Red Blood Count 5.14 10^6/uL (3.63-4.92); Red Cell Distribution Width 15.3 % (12-17)
[2024-03-19] MEDS: Iodixanol 320 (CONTRAST) 100 ML SDV IV ONE (23:07)
[2024-03-19 23:12] LABS: Albumin 3.8 g/dL (3.2-5.2); Albumin/Globulin Ratio 1.2 (1-3); Calcium 9.7 mg/dL (8.6-10.3); Creatinine, Serum 1.28 mg/dL (0.51-0.95); Globulin 3.1 g/dL (2-4); Potassium 4.6 mmol/L (3.5-5.0); Total Bilirubin 0.5 mg/dL (0.2-1.0); Total Protein 6.9 g/dL (6.4-8.9); eGFR CKD-EPI 40.8 (>60)
[2024-03-20 00:28] LABS: Urine Appearance Clear; Urine Bacteria Absent /HPF (Absent); Urine Bilirubin Negative (Negative); Urine Blood Negative (Negative); Urine Color Light-Yellow; Urine Glucose 4+ (>=1000 mg/dL) (Negative); Urine Ketones Negative (Negative); Urine Nitrite Negative (Negative); Urine Protein Trace (Negative); Urine Red Blood Cell Absent /HPF (0-Trace); Urine Squamous Epithelial Cell Present /HPF (Absent); Urine Urobilinogen Negative (Negative); Urine White Blood Cell 1+(6-10/hpf) /HPF (0-Trace); Urine pH 6.5 (5.0-8.0)
[2024-03-20 02:40] LABS: HDL Cholesterol 28.4 mg/dL
[2024-03-20 02:55] LABS: TSH Ultra Thyroid Stim Horm 1.53 mcIU/mL (0.34-5.60)
[2024-03-20] MEDS: Enoxaparin 30 MG/0.3 ML SYR SUBCUT SCH (03:20)
[2024-03-20] MEDS: FLUTICAS/UMECLI/VILANT 100-62.5-25 MDI (NF) INH SCH (07:29)
[2024-03-20 09:06] LABS: ABS Eosinophils 0.1 10^3/uL (0.0-0.5); ABS Lymphocytes 0.9 10^3/uL (1.0-4.8); ABS Monocytes 0.6 10^3/uL (0.0-0.9); ABS Neutrophils 3.6 10^3/uL (1.5-7.6); ABS Nucleated RBC 0.01 10^3/ul; Hematocrit 48.4 % (35-45); Hemoglobin 15.4 g/dL (11.5-14.3); Lymphocyte % 16.8 %; Mean Corpuscular Hemoglobin 29.8 pg (27-33); Mean Corpuscular Hgb Conc 31.8 g/dL (31-36); Mean Corpuscular Volume 93.8 fL (80-97); Mean Platelet Volume 7.7 fL (7.5-11.2); Nucleated Red Blood Cells % 0.1 %/100WBC (0.0-0.8); Platelet Count 237 10^3/uL (150-450); Red Blood Count 5.16 10^6/uL (3.63-4.92); Red Cell Distribution Width 15.8 % (12-17); White Blood Count 5.1 10^3/uL (3.8-11.8)
[2024-03-20 09:22] LABS: Calcium 9.2 mg/dL (8.6-10.3); Creatinine, Serum 1.05 mg/dL (0.51-0.95); Potassium 4.4 mmol/L (3.5-5.0); eGFR CKD-EPI 51.7 (>60)
[2024-03-20] MEDS: Empagliflozin 25 MG TAB PO SCH (09:31)
[2024-03-22 06:05] LABS: ABS Basophils 0.1 10^3/uL (0.0-0.1); ABS Eosinophils 0.1 10^3/uL (0.0-0.5); ABS Lymphocytes 1.1 10^3/uL (1.0-4.8); ABS Monocytes 0.6 10^3/uL (0.0-0.9); ABS Neutrophils 3.7 10^3/uL (1.5-7.6); Eosinophil % 2.2 %; Hematocrit 47.8 % (35-45); Hemoglobin 15.5 g/dL (11.5-14.3); Mean Corpuscular Hemoglobin 30.1 pg (27-33); Mean Corpuscular Hgb Conc 32.5 g/dL (31-36); Mean Corpuscular Volume 92.5 fL (80-97); Nucleated Red Blood Cells % 0.1 %/100WBC (0.0-0.8); Platelet Count 241 10^3/uL (150-450); Red Blood Count 5.17 10^6/uL (3.63-4.92); Red Cell Distribution Width 15.4 % (12-17); White Blood Count 5.5 10^3/uL (3.8-11.8)
[2024-03-22 06:20] LABS: Calcium 9.3 mg/dL (8.6-10.3); Creatinine, Serum 0.96 mg/dL (0.51-0.95); Potassium 4.3 mmol/L (3.5-5.0); eGFR CKD-EPI 57.6 (>60)
[2024-03-22] MEDS: Sulfur Hexaflouride MICROSPHR 25 MG VIAL IV PRN (13:31)
[2024-03-23 13:48] VITALS: BP 160/92
== END 2024-03-23 16:50 | disposition home or self-care (01) ==
LOC: ED 22:13 → EDHOLD 22:13 → SUATTDRO 03-20 02:06 → MED 03-20 03:27
PROVIDERS: ADMIT Student in an Organized Health Care Education/Training Program; ATTEND Student in an Organized Health Care Education/Training Program